=== PATIENT | female | born 1965 | race Caucasian/White ===

== ENCOUNTER → 2022-09-27 09:57 | Outpatient (CLI) | payer MEDICARE, MEDICAID, SELFPAY ==
--- NOTE | ~2022-09-27 | MR_ITS ---
MRI of the lumbar spine Clinical History: Back pain Technique: Axial T2-weighted images, and sagittal T1-weighted, T2-weighted, and T2 fat-sat images wer e acquired. Findings: There is no fracture or subluxation of the lumbar spine. Vertebral bodies maintain normal h eight and alignment. No bone marrow signal abnormality seen. At L1-L2, there is mild facet hypertrophy. No disc bulge or herniation. No spinal canal stenosis or n eural foraminal narrowing. At L2-L3, there is no significant disc bulge or herniation. There is mild facet joint hypertrophy. No spinal canal stenosis or neural foraminal narrowing. At L3-L4, there is minimal disc bulge with mild facet joint hypertrophy. No spinal canal stenosis. Th ere is minimal left neural foraminal narrowing. Right neural foramen preserved. At L4-L5, there is mild disc bulge with facet joint hypertrophy. No spinal canal stenosis. There is m inimal bilateral neural foraminal narrowing. At L5-S1, there is minimal disc bulge and facet arthropathy. No spinal canal stenosis or definite osmany ral foraminal narrowing. Paravertebral soft tissues are unremarkable. Impression: Mild degenerative spondylosis, as above. Reviewed, dictated and finalized at location M. Impression: Mild degenerative spondylosis, as above.
== END ==
PROVIDERS: PCP Nurse Practitioner; Visit Provider Physical Medicine & Rehabilitation Pain Medicine
DX: M54.16 Radiculopathy, lumbar region (principal); M16.9 Osteoarthritis of hip, unspecified; M43.06 Spondylolysis, lumbar region
CPT/HCPCS: 72148

== ENCOUNTER → 2022-09-27 10:17 | Outpatient (CLI) | payer MEDICARE, MEDICAID, SELFPAY ==
--- NOTE | ~2022-09-27 | XR_ITS ---
AP and lateral views of the right hip Clinical history: Pain Findings: No acute fracture or dislocation is seen. Osseous alignment is anatomic. The right hip join t and right SI joint are preserved. Soft tissues are unremarkable. Impression: No significant abnormality is seen. Reviewed, dictated and finalized at [facility]. Impression: No significant abnormality is seen.
== END ==
PROVIDERS: PCP Nurse Practitioner; Visit Provider Physical Medicine & Rehabilitation
DX: M16.9 Osteoarthritis of hip, unspecified (principal)
CPT/HCPCS: 73502

== ENCOUNTER → 2023-05-02 12:37 | Outpatient (CLI) | payer MEDICARE, MEDICAID, SELFPAY ==
--- NOTE | ~2023-05-02 | CT_ITS ---
EXAMINATION: CT thoracic spine wo con DATE: 05/02/2023 13:05 INDICATION: Chest pain syndrome. Failed back syndrome. TECHNIQUE: Computed tomography (CT) of the thoracic spine was performed without intravenous contrast. Automated exposure control and iterative reconstruction technique were employed. The dose-length pro duct was 1029.70 mGy-cm. COMPARISON: Lumbar spine MRI 09/27/2022 FINDINGS: There is coronary atherosclerosis. There is 9 degrees levocurvature of thoracic spine. Ther e are changes of anterior fusion procedure at C6-C7 with anterior plate and screws. There is mild chr onic anterior wedging of T11-L1 vertebral bodies. There are bridging endplate osteophytes from T3 to T11, consistent with diffuse idiopathic skeletal hyperostosis (DISH). There is mildly decreased disc height from T6-T7 through T10-T11. There is multilevel mild facet joint osteoarthritis. No central ca nal stenosis or neural foraminal stenosis. IMPRESSION: 1. Mild thoracic spondylosis. 2. DISH. Reviewed, dictated and finalized at location E.
== END ==
PROVIDERS: PCP Nurse Practitioner; Visit Provider Physical Medicine & Rehabilitation
DX: M96.1 Postlaminectomy syndrome, not elsewhere classified (principal); G89.4 Chronic pain syndrome; M43.04 Spondylolysis, thoracic region; M48.14 Ankylosing hyperostosis [Forestier], thoracic region
CPT/HCPCS: 72128

== ENCOUNTER → 2023-06-28 13:36 | Outpatient (CLI) | payer MEDICARE, MEDICAID, SELFPAY ==
--- NOTE | ~2023-06-28 | MR_ITS ---
EXAMINATION: MR brain/brain stem wo/w con DATE: 06/28/2023 14:59 INDICATION: Generalized weakness TECHNIQUE: Magnetic resonance imaging (MRI) of the brain and brainstem was performed without and with 17 mL Multihance intravenous contrast. Sequences included sagittal and axial T1-weighted SE, axial d iffusion-weighted FS SE, axial T2*-weighted GRE, axial T2-weighted FLAIR, and axial T2-weighted FSE. Postcontrast axial and coronal T1-weighted SE was obtained. Apparent diffusion coefficient (ADC) maps were created. COMPARISON: None. FINDINGS: There are no areas of restricted diffusion to suggest acute infarction. No intracranial hemorrhage or abnormal intracranial mass lesion. There are no intraparenchymal signal abnormalities seen on the ot her pulse sequences. The ventricles are symmetric and normal in size. There are no abnormal extra-axi al fluid collections. Flow voids are seen in the cerebral arteries on the T2-weighted sequences consi stent with their expected patency. Visualized orbits and soft tissues are unremarkable. There are no areas of abnormal enhancement on the post contrast images. IMPRESSION: 1. Normal brain MRI. Reviewed, dictated and finalized at location A. NING [employer]EDER IMPRESSION: 1. Normal brain MRI.
--- NOTE | ~2023-06-28 | MR_ITS ---
EXAMINATION: MR cervical spine wo con DATE: 06/28/2023 14:57 INDICATION: Generalized weakness TECHNIQUE: Magnetic resonance imaging (MRI) of the cervical spine was performed without intravenous c ontrast. Sequences included sagittal T2-weighted FSE, sagittal T2-weighted FS FSE, sagittal T1-weight ed FSE, axial MERGE and axial T2-weighted FSE. COMPARISON: None FINDINGS: Straightening of the normal cervical lordosis. No spondylolisthesis or facet subluxation. C5-C7 anter ior spinal fusion with anterior plate and screw fixation. Unfused vertebral body heights are normal. Bone marrow signal intensity is normal. Mild disc height loss at C4-C5. Disc desiccation without si gnificant disc height loss at C3-C4. There are annular fissures with small central disc extrusions at T1-T2 and T2-T3 resulting in mild central canal stenosis at both levels. Cord signal intensity is no rmal. Visualized cervical soft tissues are unremarkable. The following disc levels are specifically d iscussed: C2-C3: The disc does not extend beyond the endplate margin. There is mild right and moderate left unc overtebral joint osteoarthritis. There is mild right facet joint osteoarthritis. There is mild left n eural foraminal stenosis. There is no central canal stenosis. C3-C4: Disc is bulging. There is mild right and moderate left uncovertebral joint osteoarthritis. The re is moderate bilateral facet joint osteoarthritis. There is mild right and moderate left neural for aminal stenosis. There is mild central canal stenosis. C4-C5: Disc is bulging, eccentric to the right There is mild bilateral uncovertebral joint osteoarthr itis. There is mild bilateral facet joint osteoarthritis. There is mild bilateral neural foraminal st enosis. There is mild central canal stenosis with flattening of the right ventral surface of the cord . C5-C6: Disc space is fused. There is mild right and minimal left facet joint osteoarthritis. There is mild bilateral neural foraminal stenosis. There is no central canal stenosis. C6-C7: Disc space is fused. There is mild left and minimal right facet joint osteoarthritis. There is mild right neural foraminal stenosis. There is no central canal stenosis. C7-T1: Minimal right subarticular zone disc protrusion. There is mild left and moderate right uncover tebral joint osteoarthritis. There is mild bilateral facet joint osteoarthritis. There is moderate ri ght neural foraminal stenosis. There is no central canal stenosis. IMPRESSION: 1. Mild cervical spondylosis with instrumented C5-C7 anterior spinal fusion. Reviewed, dictated and finalized at location A. [employer]
== END ==
PROVIDERS: PCP Physical Medicine & Rehabilitation; Visit Provider Nurse Practitioner
DX: M54.12 Radiculopathy, cervical region (principal); R53.1 Weakness; Z98.1 Arthrodesis status; R51.9 Headache, unspecified; M43.02 Spondylolysis, cervical region
CPT/HCPCS: 70553; 72141; A9577

== ENCOUNTER 2024-01-28 15:59 | Emergency (ER) | payer MEDICARE, MEDICAID, SELFPAY ==
--- NOTE | 2024-01-28 16:10 | ED.URI ---
HPI - URI/Sore Throat General Chief Complaint: Upper Respiratory Infection Stated Complaint: Cold symptoms Time Seen by Provider: 01/28/24 16:10 Source: patient Mode of arrival: ambulatory Limitations: no limitations History of Present Illness HPI Narrative: Olivia is a 58-year-old female patient presenting to the clinic today with complaints of runny nose, cough, sore throat, nasal congestion, and chest congestion x 3 days. She denies any known fever or chills. Does report some chest tightness with cough. MD elicited complaint: sore throat and nasal congestion Related Data Home Medications Medication Instructions Recorded Confirmed blood-glucose meter,continuous 01/28/24 01/28/24 (Dexcom G7 Tripoler) blood-glucose sensor (Dexcom G7 01/28/24 01/28/24 Sensor device) cyanocobalamin (vitamin B-12) 1,000 mcg PO DAILY 01/28/24 01/28/24 1,000 mcg tablet duloxetine 30 mg capsule,delayed 30 mg PO DAILY 01/28/24 01/28/24 release ezetimibe 10 mg tablet 10 mg PO DAILY 01/28/24 01/28/24 gabapentin 600 mg tablet 600 mg PO BID 01/28/24 01/28/24 nortriptyline 50 mg capsule 50 mg PO DAILY 01/28/24 01/28/24 pantoprazole 20 mg tablet,delayed 20 mg PO DAILY 01/28/24 01/28/24 release pioglitazone 15 mg tablet 15 mg PO DAILY 01/28/24 01/28/24 propranolol 20 mg tablet 20 mg PO DAILY 01/28/24 01/28/24 semaglutide 2 mg/dose (8 mg/3 mL) 2 mg subcut WEEKLY 01/28/24 01/28/24 subcutaneous pen injector (Ozempic) Allergies Allergy/AdvReac Type Severity Reaction Status Date / Time Penicillins AdvReac Intermediate Dyspnea / Verified 01/28/24 16:16 SOB Review of Systems Review of Systems: Pertinent positives per HPI. Patient denies any fever, chills, rash, headache, visual changes, dizziness, shortness of breath, chest pain, palpitations, nausea, vomiting, diarrhea, constipation, abdominal pain, or any urinary issues. PMFSH Comments At the time of my signature, I reviewed and agree with the nursing past medical, surgical, social, and family history. There is no relevant family history pertinent to the patient complaint. Exam Narrative: General: Well-developed, well nourished, in no apparent distress Head: Normocephalic, atraumatic Eyes: Pupils equally round and reactive to light bilaterally, EOM intact, sclera and conjunctive clear, no discharge, lids normal Ears: TMs intact and clear, ear canals clear, no drainage, grossly hearing normal. Nose: Nares patent, clear nasal discharge, no inflammation, no sinus tenderness. Mouth: Oral pharynx without lesions or masses, good dentition, MMM. Postnasal drip Neck: Supple, trachea midline, no enlargement of anterior or posterior cervical nodes, no thyroid masses or goiter palpable. Cardio: Regular rate and rhythm, s1 and s2 normal, no murmur appreciated. Resp: Clear to auscultation bilaterally, no rhonchi, rales, wheezing or rubs Course Course Emergency Course: Portions of this record may have been created with voice recognition software. Level of Care: Express Care Visit Vital Signs Vital signs: Vital Signs Temperature 36.1 C L 01/28/24 16:16 Pulse Rate 101 H 01/28/24 16:16 Respiratory Rate 18 01/28/24 16:16 Blood Pressure 125/81 01/28/24 16:16 Pulse Oximetry 98 01/28/24 16:16 Oxygen Delivery Room Air 01/28/24 16:16 Temperature 36.1 C L 01/28/24 16:16 Pulse Rate 101 H 01/28/24 16:16 Respiratory Rate 18 01/28/24 16:16 Blood Pressure 125/81 01/28/24 16:16 Pulse Oximetry 98 01/28/24 16:16 Oxygen Delivery Room Air 01/28/24 16:16 Vital signs reviewed MDM - URI/Sore Throat MDM Narrative Medical decision making narrative: At the time of visit patient is resting comfortably on the exam table. Patient appears to be nontoxic. Labs: COVID and strep test were negative in the clinic today. We will send strep for culture. Plan: I suspect patient has URI/pharyngitis. We will send strep for culture. Supportive
[2024-01-28 16:16] VITALS: BP 125/81; PULSE 101; RESP 18; TEMP 36.1; O2SAT 98
[2024-01-28 16:24] LABS: EDSTREPNEGPOS1 Presumptive Negative
== END 2024-01-28 16:31 | disposition home or self-care (01) ==
PROVIDERS: Emergency Provider Nurse Practitioner Family; PCP Nurse Practitioner
DX: J06.9 Acute upper respiratory infection, unspecified (principal); J02.9 Acute pharyngitis, unspecified; Z20.822 Contact with and (suspected) exposure to COVID-19; E78.00 Pure hypercholesterolemia, unspecified; I10 Essential (primary) hypertension; M19.90 Unspecified osteoarthritis, unspecified site; F32.A Depression, unspecified; Z86.16 Personal history of COVID-19
CPT/HCPCS: 87081; 87426; 87880; 99213; G0463